=== PATIENT | female | born 1960 | race Caucasian/White ===

== ENCOUNTER → 2016-05-13 16:01 | Outpatient (CLI) | payer BC ==
[2010-08-06 14:25] VITALS: BMI 24.8
== END | disposition home or self-care (01) ==
LOC: D.MAMMO 07:30
DX: Z12.31 Encounter for screening mammogram for malignant neoplasm of breast (principal)

== ENCOUNTER → 2017-05-23 14:47 | Outpatient (CLI) | payer BC ==
[2010-08-06 14:25] VITALS: BMI 24.8
[2017-05-23 15:13] LABS: BASOPHILS 0.5 % (0-2); EOSINOPHILS 1.3 % (0-7); HEMOGLOBIN 14.3 g/dL (12-16); IMMATURE GRANULOCYTES 0.4 % (0-5); LYMPHOCYTES 33.9 % (15-50); MCH 30.4 pg (26.0-34.0); MCV 89.4 fL (80.0-100.0); MEAN PLATELET VOLUME 9.3 fL (7.4-10.4); MONOCYTES 6.1 % (2-11); NEUTROPHILS 57.8 % (40-80); RDW 11.8 % (11.5-14.5); WBC 8.2 10x3/uL (4.8-10.8)
[2017-05-23 15:20] LABS: PLATELET COUNT 371 10x3/uL (130-400)
== END | disposition home or self-care (01) ==
LOC: D.LAB 14:47
PROVIDERS: Internal Medicine Gastroenterology
DX: R05 Cough (principal); R09.89 Other specified symptoms and signs involving the circulatory and respiratory systems

== ENCOUNTER → 2018-02-12 09:42 | Outpatient (CLI) | payer BC ==
[2010-08-06 14:25] VITALS: BMI 24.8
== END | disposition home or self-care (01) ==
LOC: D.RAD 09:42
DX: R05 Cough (principal)

== ENCOUNTER 2018-06-22 19:00 | Outpatient (CLI) | payer BC ==
[2010-08-06 14:25] VITALS: BMI 24.8
== END 2018-06-22 23:59 | disposition home or self-care (01) ==
LOC: D.MAMMO 19:00
PROVIDERS: ATTEND Internal Medicine Gastroenterology
DX: Z12.31 Encounter for screening mammogram for malignant neoplasm of breast (principal)

== ENCOUNTER 2019-12-20 16:30 | Outpatient (CLI) | payer BC ==
[2010-08-06 14:25] VITALS: BMI 24.8
== END 2019-12-20 23:59 | disposition home or self-care (01) ==
LOC: D.MAMMO 16:30
PROVIDERS: ATTEND Obstetrics & Gynecology
DX: Z12.31 Encounter for screening mammogram for malignant neoplasm of breast (principal)

== ENCOUNTER → 2020-06-25 10:35 | Outpatient (CLI) | payer BC ==
[2010-08-06 14:25] VITALS: BMI 24.8
[2020-06-25 11:37] LABS: BASOPHILS 1.2 % (0-2); EOSINOPHILS 1.2 % (0-7); HEMATOCRIT 44.3 % (36.0-48.0); HEMOGLOBIN 14.6 g/dL (12-16); LYMPHOCYTE ABS# 2.27 10x3/uL (1.18-3.74); LYMPHOCYTES 45.9 % (15-50); MCH 30.4 pg (26.0-34.0); MCV 92.1 fL (80.0-100.0); MEAN PLATELET VOLUME 9.5 fL (7.4-10.4); MONOCYTES 8.3 % (2-11); NEUTROPHIL ABS# 2.15 10x3/uL (1.56-6.13); NEUTROPHILS 43.4 % (40-80); PLATELET COUNT 353 10x3/uL (130-400); RBC 4.81 10x6/uL (4.00-5.40); RDW 12.5 % (11.5-14.5)
[2020-06-25 11:47] LABS: INR 0.98 (0.85-1.17)
[2020-06-25 12:00] LABS: ALBUMIN 4.3 g/dL (3.4-5.0); ALKALINE PHOSPHATASE 64 U/L (30-120); ALT (SGPT) 26 U/L (10-68); BILIRUBIN - TOTAL 1.25 mg/dL (0.2-1.3); CALC OSMOLALITY 283 mosm/kg (275-300); CALCIUM 9.1 mg/dL (8.5-10.1); CARBON DIOXIDE 29.5 mmol/L (21.0-32.0); CHLORIDE - SERUM 103 mmol/L (98-107); CHOL - HDL RATIO 2.3 ratio (2.3-4.1); CHOLESTEROL, TOTAL 203 mg/dL (0-200); CREATININE - SERUM 0.6 mg/dL (0.6-1.3); GLUCOSE 100 mg/dL (74-106); HDL CHOLESTEROL 89 mg/dL (32-96); LDL CHOLESTEROL 102 mg/dL (0-100); LDL-HDL RATIO 1.1 ratio (1.5-3.5); POTASSIUM - SERUM 4.2 mmol/L (3.5-5.1); PROTEIN - SERUM 7.2 g/dL (6.4-8.2); SODIUM 142 mmol/L (136-145); TRIGLYCERIDE 60 mg/dL (30-200); UREA NITROGEN 14 mg/dL (7-18); eGFR NON AFRICAN AMERICAN > 90 mL/min (90-120)
== END | disposition home or self-care (01) ==
LOC: D.LAB 10:35
PROVIDERS: ATTEND Internal Medicine Gastroenterology
DX: R23.3 Spontaneous ecchymoses (principal)